=== PATIENT | female | born 1960 | race Caucasian/White ===

== ENCOUNTER 2017-11-08 23:09 | Emergency (ER) | payer BC ==
[~2017-11-08] VITALS: Ht 160 cm; Wt 49.9 kg
[2017-11-08 23:56] LABS: Basophils # (auto) 0 uL; Basophils % (auto) 0.4 % (0.0-2.0); Eosinophils # (auto) 0.1 uL; Eosinophils % (auto) 1.5 % (0.0-7.0); Hematocrit 37.2 % (36.0-46.0); Hemoglobin 12.2 g/dL (12.2-16.2); Lymphocytes % (auto) 32.7 % (10.0-50.0); Mean Corpuscular Hemoglobin 28.7 pg (28.0-32.0); Mean Corpuscular Hgb Conc. 32.9 g/dL (32.0-36.0); Mean Corpuscular Volume 87.4 fL (80.0-100.0); Monocytes # (auto) 0.5 uL; Monocytes % (auto) 5.2 % (0.0-12.0); Neutrophils # (auto) 5.5 uL; Neutrophils % (auto) 60.2 % (37.0-80.0); Platelet Count (auto) 334 10^3/uL (140-450); Red Blood Cells 4.25 10^6/uL (4.0-5.20); Red Cell Distribution Width 15.5 % (11.8-14.3); White Blood Cell 9.1 10^3/uL (4.4-10.8)
[2017-11-09 00:28] LABS: Alanine Aminotransferase 14 U/L (13-56); Albumin 3.5 g/dL (3.4-5.0); Alkaline Phosphatase 91 U/L (45-117); Anion Gap 8 (5-15); Aspartate Aminotransferase 10 U/L (15-37); BUN/Creatinine Ratio 13.9; Bilirubin, Total 0.4 mg/dL (0.2-1.0); Blood Urea Nitrogen 14 mg/dL (7-18); Calcium 9.1 mg/dL (8.5-10.1); Carbon Dioxide 26 mmol/L (21-32); Chloride 106 mmol/L (98-107); GFR African American 73 mL/min; GFR Non-African American 60 mL/min; Glucose 148 mg/dL (74-106); Magnesium 2.5 mg/dL (1.6-2.6); Potassium 4.4 mmol/L (3.5-5.1); Sodium 140 mmol/L (136-145); Total Protein 7.7 g/dL (6.4-8.2)
[2017-11-09 03:54] LABS: Urine Bacteria FEW /hpf (None Seen); Urine Blood Negative /uL (Negative); Urine Mucus FEW (None Seen); Urine Specific Gravity 1.026 (1.001-1.035); Urine WBC 12 /hpf (0 - 5)
[2017-11-09 05:59] VITALS: BP 139/66
[2017-11-09] MEDS ORDERED: KETOROLAC TROMETH 60MG/2ML VIAL IM ONE (07:45)
== END 2017-11-09 08:10 | disposition home or self-care (01) ==
LOC: ER 23:19
DX: N39.0 Urinary tract infection, site not specified (principal); M79.1 Myalgia; G89.29 Other chronic pain; M54.9 Dorsalgia, unspecified; M32.9 Systemic lupus erythematosus, unspecified; Z88.0 Allergy status to penicillin
CPT/HCPCS: 36415; 71045; 72100; 80053; 81001; 83735; 84484; 85025; 93005